=== PATIENT | female | born 2005 | race Caucasian/White ===

== ENCOUNTER 2023-10-10 05:08 | Emergency (ER) | payer BC, SELFPAY ==
[2023-10-10] MEDS ORDERED: Ondansetron ODT 4 MG TAB ONE (05:42)
[2023-10-10] MEDS ORDERED: Mag-Al Plus 1200/1200/120 MG (30 mL) UDCUP ONE (05:42)
[2023-10-10] MEDS ORDERED: Lidocaine Viscous Sol 2% 15 ml UD Cup ONE (05:42)
[2023-10-10 05:51] LABS: Bilirubin Negative (Negative); Blood, Urine Trace (Negative); Clarity Clear (Clear); Glucose, Urine (Dipstick) Negative (Negative); Ketone, Urine Negative (Negative); Leukocyte Negative (Negative); Nitrite Negative (Negative); Protein, Urine (Dipstick) Negative (Neg-Trace); Urobilinogen 0.2 mg/dL (Less than 2)
[2023-10-10 05:52] LABS: Specific Gravity, Urine 1.026 (1.005-1.030)
[2023-10-10 05:53] LABS: CAUTI Indications for Culture Pelvic or flank pain; Pregnancy Test - Urine (BHCG) Negative (Negative); Pregu Control Background? CLEAR/WHITE (CLR/WHITE); Pregu Control Bar Appear? YES (CONTROL BAR); Specific Gravity 1.026 (1.002-1.036); Squamous Epithelial 0-3 HPF (0-3); Urine Culture Reflex No No; WBC/HPF None Seen HPF (0-3)
[2023-10-10] MEDS ORDERED: Morphine 4 MG/ML VIAL ONE (06:10)
[2023-10-10] MEDS ORDERED: Ondansetron PF 4 MG/2 ML Vial ONE ×2 (06:10→06:25)
[2023-10-10] MEDS ORDERED: Lactated Ringer's 1,000 ML ONE (06:10)
[2023-10-10] MEDS ORDERED: Famotidine/PF 20 mg/2ml Vial ONE (06:12)
[2023-10-10 06:45] LABS: Hemoglobin 15.3 g/dL (12.0-16.0); Lymphocytes 8 % (28-48); MDiff Complete? YES; Mean Corpuscular HGB CONC 33.2 g/dL (32.0-36.0); Mean Corpuscular Hemoglobin 30.3 pg (25.0-35.0); Mean Corpuscular Volume 91.4 fl (78.0-98.0); Mean Platelet Volume 8.3 fL (7.4-10.4); Monocytes 4 % (0-4); Neutrophil 88 % (31-61); Platelet Count 274 10x3/uL (130-400); RBC Distribution Width 11.2 % (11.5-14.5); Red Blood Cell (RBC) Count 5.03 mill/uL (4.00-5.20)
[2023-10-10 07:00] LABS: ALT (SGPT) 37 U/L (8-55); AST (SGOT) 26 U/L (5-30); Albumin 4.5 g/dL (3.5-5.0); Alkaline Phosphatase 57 U/L (40-100); Anion Gap 15 mmol/L (10-20); BUN (Urea Nitrogen) 12 mg/dL (8.4-21.0); Bilirubin, Total 0.5 mg/dL (0.2-1.2); Calc. Creatinine Clearance 0 mL/min (70-130); Calcium 9.5 mg/dL (7.8-10.44); Carbon Dioxide 22 mmol/L (22-29); Chloride 107 mmol/L (98-107); Estimated GFR 106; Globulin 2.6 g/dL (2.4-3.5); Glucose 121 mg/dL (70-105); Lipase 14 U/L (8-78); Potassium 3.8 mmol/L (3.5-5.1); Protein, Total 7.1 g/dL (6.0-8.3); Sodium 140 mmol/L (136-145)
[2023-10-10 07:01] LABS: Troponin I Less than 0.010 ng/mL (< 0.028)
[2023-10-10] MEDS ORDERED: Prochlorperazine 10 MG/2 ML VIAL ONE (07:22)
[2023-10-10] MEDS ORDERED: Ketorolac Tromethamine 30 MG (1 mL) VIAL ONE (07:22)
[2023-10-10] MEDS ORDERED: Piperacillin/Tazobactam 3.375 GM VIAL ONE (08:17)
[2023-10-10] MEDS ORDERED: Sodium Chloride 0.9% 100 ML ONE (08:17)
[2023-10-10] MEDS ORDERED: Sodium Chloride 0.9% 1,000 ML ONE ×2 (08:44→09:49)
[2023-10-10] MEDS ORDERED: Iopamidol 370 76% 100 ML VIAL ONE (09:00)
== END 2023-10-10 12:15 | disposition short-term general hospital (02) ==
LOC: MADERS 05:08
DX: K35.80 Unspecified acute appendicitis (principal); F17.290 Nicotine dependence, other tobacco product, uncomplicated
CPT/HCPCS: 71045; 74177; 80053; 81001; 81025; 83690; 84484; 85025; 93005; 94760; 96361; 96365; 96375; J0780; J1885; J2270; J2405; J2543; J3490; J7050; J7120; Q0162; Q9967; S0028